=== PATIENT | male | born 1945 ===

== ENCOUNTER 2018-01-03 08:37 | Outpatient (CLI) | payer OTHER | END 2018-01-03 08:51 | disposition home or self-care (01) | LOC: LAB 08:37 | DX: I11.9 Hypertensive heart disease without heart failure (principal); E11.9 Type 2 diabetes mellitus without complications; N40.0 Benign prostatic hyperplasia without lower urinary tract symptoms; E78.2 Mixed hyperlipidemia; M10.9 Gout, unspecified ==